=== PATIENT | female | born 1990 ===

== ENCOUNTER → 2018-09-15 22:54 | Outpatient (REF) | payer BC, OTHER, MEDICAID, SELFPAY ==
[2018-09-16 01:38] LABS: Alanine Aminotransferase 45 IU/L (9-52); Albumin 4.5 g/dL (3.5-5.0); Albumin Globulin Ratio 1.3 (1.0-2.8); Alkaline Phosphatase 91 U/L (38-126); Aspartate Aminotransferase 29 IU/L (14-36); BUN Creatinine Ratio 11.4 (6-22); Bilirubin Total 0.3 mg/dL (0.2-1.3); Blood Urea Nitrogen 8 mg/dL (7-17); Calcium 9.9 mg/dL (8.4-10.2); Carbon Dioxide 31 mmol/L (22-32); Chloride 94 mmol/L (98-107); Estimated Glomerular Filt Rate > 60.0 mL/min (>60); Globulin 3.6 g/dL (1.7-4.1); Glucose 284 mg/dL (70-100); HEMOLYSIS < 15 (0-50); Potassium 4.7 mmol/L (3.4-5.1); Sodium 137 mmol/L (137-145); Total Protein 8.1 g/dL (6.3-8.2)
== END ==
LOC: LAB 22:54
PROVIDERS: Visit Provider Naturopath
DX: E11.9 Type 2 diabetes mellitus without complications (principal)
CPT/HCPCS: 36415; 80053

== ENCOUNTER → 2018-09-16 21:19 | Outpatient (REF) | payer BC, OTHER, MEDICAID, SELFPAY ==
[2018-09-17 00:44] LABS: Hemoglobin A1C% w Est Avg Glu 11.1 % (4.0-6.0)
== END ==
LOC: LAB 21:19
PROVIDERS: Visit Provider Naturopath
DX: E11.9 Type 2 diabetes mellitus without complications (principal)
CPT/HCPCS: 36415; 83036